=== PATIENT | female | born 1935 | race Caucasian/White ===

== ENCOUNTER 2017-02-20 05:29 | Inpatient (IN) | payer OTHER, MEDICARE ==
[2017-02-05 13:11] LABS: HEMATOCRIT 37.1 % (37.0-47.0); HEMOGLOBIN 12.2 gm/dL (12.0-15.0); MCH 29.6 pg (26.0-34.0); MCHC 32.9 g/dL (28.0-37.0); MCV 89.7 fL (80.0-100.0); RBC 4.14 mil/uL (4.20-5.00); RDW 14.7 % (10.5-14.5); URINE BLOOD NEGATIVE (Negative); URINE COLOR YELLOW; URINE GLUCOSE-RANDOM* NEGATIVE (Negative); URINE KETONES NEGATIVE (Negative); URINE LEUKOCYTES-REFLEX 1+ (Negative); URINE PROTEIN (DIPSTICK) TRACE (Negative); URINE SPECIFIC GRAVITY 1.025 (1.003-1.035); URINE UROBILINOGEN 0.2 E.U./dl (0.2-1.0); WBC 5.5 thou/uL (4.0-11.0)
[2017-02-05 13:22] LABS: PROTIME 10.6 Seconds (9.3-11.4)
[2017-02-05 13:24] LABS: CALCIUM 9.1 mg/dL (8.5-10.1); POTASSIUM 3.9 mmol/L (3.5-5.1)
[2017-02-05 13:26] LABS: URINE BILIRUBIN NEGATIVE (Negative)
[2017-02-05 13:27] LABS: CASTS None Seen /LPF (None Seen); CRYSTALS None Seen /LPF (None Seen); SQUAMOUS >10 Many /LPF (0-3); URINE RBC None Seen /HPF (0-2); URINE WBC-REFLEX 6-15 Few /HPF (0-5)
[~2017-02-20] VITALS: Ht 162.6 cm; Wt 50.8 kg
[2017-02-20] VITALS (8 sets, daily range): BP systolic 94–118; BP diastolic 45–57
--- NOTE | ~2017-02-20 | EKG ---
[address] [address] ELECTROCARDIOGRAM REPORT Name: SUDHAYAKELIN Erica Room #: PRE IN [facility]#: [id number] Admission: Attend Phys: Jose John MD Discharge: Date of : 39 Report #: [id number] THIS REPORT FOR: //name// [facility] Test Date: 2017-02-05 Test Time: 13:02:46 Pat Name: YAKELIN HALEY Department: Room: Gender: F [employer] Former: [employer] : 1935 Requested By: Jose John Order Number: [id number] MD: Kirill Park Measurements Intervals [place] Rate: 56 P: 81 ME: 148 QRS: 87 QRSD: 109 T: 52 QT: 412 QTc: 398 Interpretive Statements Sinus rhythm Borderline right axis deviation Borderline T abnormalities, anterior leads Baseline wander in lead(s) V3 Compared to ECG 08/12/2007 08:47:53 Left-axis deviation no longer present T-wave abnormality still present Electronically Signed On 02-06-2017 22:52:19 CDT by Kirill Park [email or web address] <ELECTRONICALLY SIGNED> By: Kirill Park MD 02/06/17 2252 1302 1302 Kirill Park MD /EPI
[~2017-02-20 05:29] MED LIST: ALEVE220 MG PO; CELEXA20 MG PO; CHEWABLE-VITE1 EAC1 PO; ENSURE ORIGINA237 ML PO; FLONASE 0.05%50 MCG NASAL; PANTOPRAZOLE SO40 M1 PO; PROPRANOLOL 8080 MG PO; TRAMADOL 50 MG50 MG PO; TRAZODONE HCL50 MG PO; VITAMIN D2000 UNI1 PO
[2017-02-21 04:00] VITALS: BP 114/44
[2017-02-21 05:01] LABS: HEMATOCRIT 28.7 % (37.0-47.0); HEMOGLOBIN 9.8 gm/dL (12.0-15.0); MCH 30.3 pg (26.0-34.0); MCHC 34.1 g/dL (28.0-37.0); MCV 88.7 fL (80.0-100.0); RBC 3.23 mil/uL (4.20-5.00); RDW 14.1 % (10.5-14.5)
[2017-02-21 07:30] VITALS: BP 103/49
[2017-02-21 12:42] VITALS: BP 103/49
[2017-02-21 15:05] VITALS: BP 114/48
[2017-02-21 15:49] VITALS: BP 103/49
[2017-02-21 19:56] VITALS: BP 117/54
[2017-02-22 03:55] VITALS: BP 112/68
[2017-02-22 05:26] LABS: HEMATOCRIT 26.9 % (37.0-47.0); HEMOGLOBIN 9.1 gm/dL (12.0-15.0); MCHC 33.9 g/dL (28.0-37.0); MCV 88.5 fL (80.0-100.0); RBC 3.04 mil/uL (4.20-5.00); WBC 7.6 thou/uL (4.0-11.0)
[2017-02-22 08:45] VITALS: BP 152/61
[2017-02-22 08:49] VITALS: BP 88/42
[2017-02-22 14:11] VITALS: BP 94/47
[2017-02-22 16:03] VITALS: BP 114/50
[2017-02-22 18:54] VITALS: BP 113/53
[2017-02-23 06:02] VITALS: BP 107/50
[2017-02-23 06:47] LABS: HEMATOCRIT 21.9 % (37.0-47.0); HEMOGLOBIN 7.5 gm/dL (12.0-15.0); MCH 30.2 pg (26.0-34.0); MCV 88.6 fL (80.0-100.0); RBC 2.47 mil/uL (4.20-5.00); RDW 13.3 % (10.5-14.5)
[2017-02-23] MEDS ORDERED: XARELTO10 MG PO (06:58)
[2017-02-23] MEDS ORDERED: OXYCODONE20 MG/1 ML PO (06:58)
[2017-02-23 07:39] VITALS: BP 109/64
[2017-02-23 10:31] VITALS: BP 103/49
[2017-02-23 11:31] VITALS: BP 103/49
[2017-02-23] MEDS ORDERED: IRON325 PO (13:40)
[2017-02-23] MEDS ORDERED: COLACE 100 MG100 MG PO (13:41)
[2017-02-23] MEDS ORDERED: HYDROCODONE-APA1 TA1 PO (13:42)
== END 2017-02-23 14:35 | disposition home health service (06) | DRG 470 ==
LOC: 5S 05:29 → TBA 05:29 → PRE 08:22 → 5S 12:02 → PRE 12:25 → 5S 16:04
PROVIDERS: Orthopaedic Surgery
PROC: 0SR901Z Replacement of Right Hip Joint with Metal Synthetic Substitute, Open Approach (ICD-10-PCS; principal; 2017-02-20)
DX: M16.11 Unilateral primary osteoarthritis, right hip (principal); E46 Unspecified protein-calorie malnutrition; Z68.1 Body mass index [BMI] 19.9 or less, adult; R25.1 Tremor, unspecified; R13.10 Dysphagia, unspecified; D64.9 Anemia, unspecified; I95.9 Hypotension, unspecified
CPT/HCPCS: 10785; 50010; 50101; 50382; 50414; 50455; 50612; 50855; 50939; 51412; 51771; 53000; 55388; 56521; 56525; 56527; 56530; 57095; 62110; 62900; 70005